=== PATIENT | male | born 1970 | race Two or more races ===

== ENCOUNTER 2017-06-21 11:26 | Emergency (ER) | payer SELFPAY ==
[~2017-06-21] VITALS: Ht 165.1 cm; Wt 83.9 kg
[2017-06-21] MEDS ORDERED: ATENOLOL25 MG ORAL (11:36)
[2017-06-21] MEDS ORDERED: Tetanus/Diptheria/Pertussis Vaccine 0.5ml Syr IM ONE (12:00)
[2017-06-21] MEDS ORDERED: Lidocaine 1% MPF 10mg/ml 5ml INJ ONE (12:00)
[2017-06-21] MEDS ORDERED: KEFLEX500 MG ORAL (13:27)
--- NOTE | 2017-06-21 13:27 | Emergency Room Report ---
History of Present Illness General Chief Complaint: Laceration Source: Patient Present Illness HPI 46-year-old male, presenting with left finger foreign body. Patient states that he was at work, a nail actually went through and through the distal part of his finger. Very painful. Bleeding. Still able to flex finger although has pain. Tetanus is not up-to-date Allergies: Coded Allergies: No Known Allergies (Unverified , 06/21/17) Patient History Past Medical History: see triage record Past Surgical History: none Pertinent Family History: none Reviewed Nursing Documentation: PMH: Agreed, PSxH: Agreed Nursing Documentation-PMH Hx Hypertension: Yes Review of Systems All Other Systems: negative except mentioned in HPI Physical Exam Vital Signs Date Time Temp Pulse Resp B/P (MAP) Pulse Ox O2 Delivery O2 Flow Rate FiO2 06/21/17 11:32 98.4 89 21 188/106 98 Room Air 98.4 Sp02 EP Interpretation: reviewed, normal General Appearance: normal inspection, well appearing, no apparent distress, alert, GCS 15, non-toxic Head: normocephalic, atraumatic Eyes: bilateral eye normal inspection, bilateral eye PERRL, bilateral eye EOMI ENT: normal ENT inspection, normal pharynx, normal voice, moist mucus membranes Neck: normal inspection, full range of motion, supple Respiratory: normal inspection, lungs clear, normal breath sounds, no respiratory distress, no retraction, no wheezing, speaking full sentences, chest symmetrical Cardiovascular #1: normal inspection, regular rate, rhythm, no edema, normal capillary refill Cardiovascular #2: 2+ radial (R), 2+ radial (L) Gastrointestinal: normal inspection, non tender, soft, non-distended, no guarding Genitourinary: no CVA tenderness Musculoskeletal: other - Left distal phalanx index finger, about 2 cm nail through and through full aspect, minimal bleeding Neurologic: normal inspection, alert, oriented x3, responsive, motor strength/ tone normal, sensory intact, normal gait, speech normal Psychiatric: normal inspection, judgement/insight normal, memory normal Skin: normal inspection, normal color, no rash, warm/dry, well hydrated, normal turgor Procedures Laceration/Wound Repair Laceration/Wound Repair : Consent: Verbal Wound Location: other - L index finger Wound's Depth, Shape: other - finger Wound Length (cm): 1 Wound Explored: foreign body removed Irrigated w/ Saline (ccs): 1000 Betadine Prep?: Yes Anesthesia: 1% Lidocaine Volume Anesthetic (ccs): 8 Wound Repaired With: sutures Suture Size/Type: 5:0, nylon Number of Sutures: 2 Sterile Dressing Applied?: Yes Splint Applied?: Yes Patient Tolerated: Well Complications: None Progress Wound was aggressively irrigated, Betadine prep, lidocaine for digital block. Adequate anesthesia obtained. Nail was removed without complications Medical Decision Making Diagnostic Impression: Primary Impression: Foreign body of finger of left hand Additional Impression: Laceration ER Course 46-year-old male with left finger foreign body DDX: Embedded nail into left distal finger, rule out underlying fracture ER course: Digital block performed with 1% lidocaine, adequate anesthesia obtained, the foreign body was removed easily manually. Minimal bleeding. There was a large protrusion in the volar aspect, this was repaired with 2 sutures Tetanus given Disposition: Patient will be discharged home with prophylactic antibiotics Strict return precautions discussed with patient such as fever, chills, increasing bleeding to site, purulent drainage, rapid swelling or redness to area. Patient verbalizes understanding. Patient instructed to return to ED or their primary care doctor in 2 days for evaluation of wound and in 14 days for removal of sutures. Patient agrees with plan. Please note that this Emergency Department Report was dictated using [employer] customer service technology software, occasionally this can lead to erroneous entry secondary to interpretation by the dictation equipment Xray: Left hand 3 view Indication: Pain EP Interpretation: Yes Interpretation: Foreign body noted in left index finger, no underlying fractures seen Impression: FB Electronically signed by Livan Salcedo MD Xray: Fingers L 3 view Indication: Pain EP Interpretation: Yes Interpretation: No dislocation, no soft tissue swelling, no fractures Impression: No acute disease Electronically signed by Livan Salcedo MD Last Vital Signs Date Time Temp Pulse Resp B/P (MAP) Pulse Ox O2 Delivery O2 Flow Rate FiO2 06/21/17 13:01 98.4 06/21/17 11:32 89 21 188/106 98 Room Air Disposition: HOME, SELF-CARE Condition: Improved Scripts Cephalexin* (KEFLEX*) 500 Mg Capsule 500 MG ORAL Q6H for 7 Days, #28 CAP 0 Refills Prov: Livan Salcedo M.D. 06/21/17 Referrals: NOT CHOSEN IPA/,REFERRING (PCP) Additional Instructions: Please come back to the emergency room in 48 hours for wound recheck. Please come back to the emergency room or your primary care doctor's office in 2 weeks for suture removal Livan Salcedo M.D. Jun 21, 2017 13:27
[2017-06-21] MEDS ORDERED: Bacitracin Oint UD TOPIC ONE (13:30)
[2017-06-21 13:51] VITALS: BP 134/91
--- NOTE | 2017-06-21 14:06 | Diagnostic Imaging Report ---
Indication: Reason For Exam: PAIN Technique: 3 views left hand Comparison: none Findings: A very large screw appears to project obliquely through the base of the second distal phalanx. No definite fracture visible where the screw is located. A small metallic foreign body projects in the soft tissues adjacent to the mid shaft proximal phalanx, located dorsal and medially. Impression: Positive for foreign body. This appears to project through the second distal phalanx, although subsequent postremoval radiograph demonstrates no definite bony injury so presumably just within the soft tissues immediately adjacent to the bone. Small punctate foreign body seen within the proximal second phalangeal soft tissues Findings discussed by phone with Dr. Salcedo
--- NOTE | 2017-06-21 14:08 | Diagnostic Imaging Report ---
Indication: Pain, laceration, foreign body Technique: 3 views of the left index finger Comparison: Hand radiograph taken 1 1/2 hours earlier Findings: Interim removal of previously demonstrated large screw through the distal phalangeal region. Post screw removal, no osseous injury is demonstrated, so the foreign body was presumably entirely within the soft tissues. No significant soft tissue gas. No radiopaque foreign body seen at the site of the injury. A small punctate radiopaque foreign body is again demonstrated adjacent to the shaft of the proximal phalanx. Impression: Since 1 1/2 hours earlier, interim foreign body removal. No underlying osseous injury demonstrated. Small punctate proximal foreign body again demonstrated
== END 2017-06-21 13:53 | disposition home or self-care (01) ==
LOC: EMR 11:51
DX: S61.221A Laceration with foreign body of left index finger without damage to nail, initial encounter (principal); W45.0XXA Nail entering through skin, initial encounter; Y92.89 Other specified places as the place of occurrence of the external cause; Z23 Encounter for immunization
CPT/HCPCS: 90471; 90715; 99284

== ENCOUNTER 2017-06-24 08:48 | Emergency (ER) | payer SELFPAY ==
[~2017-06-24] VITALS: Ht 165.1 cm; Wt 83.9 kg
[~2017-06-24 08:48] MED LIST: ATENOLOL25 MG ORAL; KEFLEX500 MG ORAL
[2017-06-24 09:03] VITALS: BP 150/81
--- NOTE | 2017-06-24 09:15 | Emergency Room Report ---
History of Present Illness General Chief Complaint: General Complaint Source: Patient Present Illness HPI 47-year-old male here for wound check. Patient was seen in the emergency room by me 2 days ago, had a foreign body removal, had 2 stitches placed. Patient has been on his antibiotics and has been compliant. Patient states that swelling has improved. No purulent drainage. No spread of rash. Full range of motion of his hand Allergies: Coded Allergies: No Known Allergies (Unverified , 06/21/17) Patient History Past Medical History: see triage record Past Surgical History: none Pertinent Family History: none Reviewed Nursing Documentation: PMH: Agreed, PSxH: Agreed Nursing Documentation-PMH Past Medical History: No History, Except For Hx Hypertension: Yes Review of Systems All Other Systems: negative except mentioned in HPI Physical Exam Vital Signs Date Time Temp Pulse Resp B/P (MAP) Pulse Ox O2 Delivery O2 Flow Rate FiO2 06/24/17 08:55 98.4 56 18 152/85 97 Room Air 98.4 Sp02 EP Interpretation: reviewed, normal General Appearance: normal inspection, well appearing, no apparent distress, alert, GCS 15, non-toxic Head: normocephalic, atraumatic Eyes: bilateral eye normal inspection, bilateral eye PERRL, bilateral eye EOMI ENT: normal ENT inspection, normal pharynx, normal voice Respiratory: normal inspection, lungs clear, normal breath sounds, no respiratory distress, no retraction, no wheezing, speaking full sentences, chest symmetrical Cardiovascular #1: normal inspection, regular rate, rhythm, no edema, normal capillary refill Musculoskeletal: other - Left index finger with healing abrasion noted on the dorsal surface, volar surface middle phalanx with healing laceration, [address], no wound dehiscence, no purulent drainage. Patient has full range of motion of finger, FDS and FDP intact Neurologic: normal inspection, alert, oriented x3, responsive, motor strength/ tone normal, sensory intact, normal gait, speech normal Psychiatric: normal inspection, judgement/insight normal, memory normal Medical Decision Making Diagnostic Impression: Primary Impression: Encounter for wound re-check ER Course 47-year-old male here for wound recheck DDX: Healing wound no signs of infection Plan: None ER course: Patient has remained stable during ED stay. Disposition: Patient is to be discharged to home. Patient instructed to continue taking antibiotics. Followup in the emergency room or primary care doctor's office in 10 days for suture removal Please note that this Emergency Department Report was dictated using [employer] machine operator technology software, occasionally this can lead to erroneous entry secondary to interpretation by the dictation equipment Last Vital Signs Date Time Temp Pulse Resp B/P (MAP) Pulse Ox O2 Delivery O2 Flow Rate FiO2 06/24/17 09:03 98.3 71 18 150/81 99 Room Air 98.3 Disposition: HOME, SELF-CARE Condition: Improved Patient Instructions: Wound Check Livan Salcedo M.D. Jun 24, 2017 09:15
== END 2017-06-24 09:16 | disposition home or self-care (01) ==
LOC: EMR 09:00
DX: S61.213D Laceration without foreign body of left middle finger without damage to nail, subsequent encounter (principal); I10 Essential (primary) hypertension
CPT/HCPCS: 99281